=== PATIENT | male | born 1965 | race Caucasian/White ===

== ENCOUNTER 2016-11-11 14:00 | Emergency (ER) | payer BC ==
--- NOTE | ~2016-11-11 | EKG ---
PATIENT: PATRICIO SILVA UNIT #: [id number] Ventricular Rate: 100 BPM Atrial Rate: 100 BPM P-R Interval: 174 ms QRS Duration: 82 ms Q-T Interval: 350 ms QTC Calculation(Bezet): 451 ms P [place]: 22 degrees Calculated R [place]: 7 degrees Calculated T [place]: 25 degrees Diagnosis Line: Normal sinus rhythm Diagnosis Line: Normal ECG Diagnosis Line: No previous ECGs available Diagnosis Line: Confirmed by JEVON HILARIO MD ([id number]) on Diagnosis Line: 11/17/2016 7:16:54 AM INTERPRETING MD: MAUREEN
--- NOTE | ~2016-11-11 | CR72 ---
[facility]. [facility] A Service of [facility] & [facility] RADIOLOGY TEXT RESULTS PATIENT: PATRICIO SILVA LOCATION: SED : 65 UNIT #: [id number] AGE: [address]: Luis Fragoso MD SEX: M ORDER DR: [id number] [place] [id number] E MR#: [id number] Acc #: [id number] NAME: PATRICIO SILVA : 1965 SEX: M STUDY DATE/TIME: 11/11/2016 14:17 UNIT: SED ROOM: STUDY DESCRIPTION: CR Chest Single View Portable Attending Physician: Luis Fragoso M.D. Referring Physician: Luis Fragoso M.D. Ordering Physician: Luis Fragoso M.D. Primary Care Physician: Andrew Coleman M.D. MEDICAL IMAGING REPORT This report is preliminary unless electronic signature is present. EXAM AP portable chest 11/11/2016. HISTORY 51-year-old male in the ED complaining of new onset chest pain today. TECHNIQUE AP portable upright chest x-ray. FINDINGS The heart size and pulmonary vascularity are within normal limits. The lungs are expanded and clear. No visible pulmonary infiltrate or pleural effusion. No change since 07/11/2010. IMPRESSION Negative chest. Dictated by... Agustín Hamilton M.D. THIS IS AN ELECTRONICALLY VERIFIED REPORT Agustín Hamilton M.D. at 11/11/2016 10:42 PM TODD/deandre TD: 11/11/2016 18:36 JOB #: [id number] MEDICAL IMAGING REPORT Page 1 of 1
[2016-11-11 13:09] LABS: BASOPHIL# 0.1 X10e3 (0-0.3); BASOPHIL% 0.8 % (0-2.5); EOSINOPHIL# 0.1 X10e3 (0-0.7); HEMATOCRIT 45.8 % (38.0-50.0); HEMOGLOBIN 15.4 gm/dL (13.0-16.0); LYMPHOCYTE# 1.8 X10e3 (1.0-3.5); LYMPHOCYTE% 20.3 % (17.0-45.0); MEAN CELL VOLUME 86.4 FL (83-96); MEAN CORPUSCULAR HGB CONC 33.6 g/dL (30-36); MEAN PLATELET VOLUME 9.3 FL (6.5-11.5); MONOCYTE# 0.7 X10e3 (0-1.0); MONOCYTE% 8.1 % (3.0-12.0); NEUTROPHIL# 6.1 X10e3 (1.5-7.1); NEUTROPHIL% 69.8 % (40-75); PLATELET COUNT 244 X10e3 (140-420); RED CELL DISTRIBUTION WIDTH 13.3 % (11.0-15.5); WHITE BLOOD COUNT 8.7 X10e3 (4.0-10.5)
[2016-11-11 13:10] LABS: DIFF IND NO
[2016-11-11 13:20] LABS: INR 1.2; PROTHROMBIN TIME (PATIENT) 13.3 SECONDS (9.5-12.4)
[2016-11-11 13:21] LABS: POC - CKMB 1.8 ng/mL (0.0-7.9); POC - TROPONIN <0.05 ng/mL (<=0.05)
[2016-11-11 13:27] LABS: PARTIAL THROMBOPLASTIN TIME 35.8 SECONDS (25.6-38.1)
[2016-11-11 13:31] LABS: ALBUMIN SERUM 4.7 g/dL (3.5-5.0); BILIRUBIN, DIRECT 0.1 mg/dL (0.0-0.2); BILIRUBIN,INDIRECT 0.7 mg/dL (0.0-0.9); BILIRUBIN,TOTAL 0.8 mg/dL (0.2-2.0); BUN/CREATININE RATIO 23.33; CALCIUM SERUM 9.4 mg/dL (8.4-10.2); CREATININE SERUM 0.9 mg/dL (0.6-1.4); GLOM FILT RATE Estimated 98.5 mL/min (>60); POTASSIUM 4.1 mmol/L (3.5-5.1); PROTEIN TOTAL SERUM 8.3 g/dL (6.0-8.3)
[2016-11-11 13:45] LABS: URINE SOURCE CLEAN CATCH
[2016-11-11 13:53] LABS: URINE APPEARANCE CLEAR; URINE BILIRUBIN NEG (NEG); URINE BLOOD NEG (NEG); URINE COLOR YELLOW; URINE GLUCOSE 300 MG/DL (NORM); URINE KETONE NEG (NEG); URINE LEUKOCYTE ESTERASE NEG (NEG); URINE NITRATE NEG (NEG); URINE PROTEIN NEG (NEG); URINE UROBILINOGEN 0.2 MG/DL (NORM)
[2016-11-11 13:55] LABS: MICRO INDICATED? NO
[~2016-11-11 14:00] MED LIST: ACTOS15 MG PO; COLACE PO; FARXIGA10 MG PO; HUMALOG100 U/M2 SQ; INSULIN SQ; LANTUS100 U/M1 SQ; LIPITOR PO; LISINOPRIL2.5 MG PO; METFORMIN PO; NOVOLOG100 U/ML SQ; ONGLYZA5 MG PO; PROTONIX PO; SENNA PO; TORADOL10 MG PO; ZANTAC150 M1 PO; ZOFRAN ODT4 MG PO; [UNRECOGNIZED DRUG - OTHER]
== END 2016-11-11 16:23 ==
LOC: SED 14:00
PROVIDERS: Emergency Medicine
DX: R07.89 Other chest pain (principal); R11.0 Nausea; R61 Generalized hyperhidrosis; E11.9 Type 2 diabetes mellitus without complications; I10 Essential (primary) hypertension; E78.5 Hyperlipidemia, unspecified; K21.9 Gastro-esophageal reflux disease without esophagitis
CPT/HCPCS: 36415; 71010; 80048; 80076; 81003; 82150; 82553; 82947; 83690; 83735; 84484; 85025; 85610; 85730; 93005; 96361; 96374; 96375; 99285; J2270; J2405